=== PATIENT | male | born 1960 | race Caucasian/White ===

== ENCOUNTER 2018-01-15 11:17 | Emergency (ER) | payer BC, OTHER ==
[~2018-01-15] VITALS: Ht 175.3 cm; Wt 108.9 kg
[2018-01-15] MEDS ORDERED: PROSCAR 5MG TABL5 MG PO (11:25)
[2018-01-15] MEDS ORDERED: HYDROCHLOROTH12.5 M1 PO (11:25)
[2018-01-15] MEDS ORDERED: LISINOPRIL20 MG PO (11:25)
[2018-01-15] MEDS ORDERED: NORCO 5-325 TA1 EACH PO (12:48)
[2018-01-15] MEDS ORDERED: VALIUM5 MG PO (12:48)
[2018-01-15] MEDS ORDERED: MOBIC15 MG PO (12:48)
[2018-01-15 13:25] VITALS: BP 155/101
== END 2018-01-15 13:15 | disposition home or self-care (01) ==
LOC: ER 11:17
DX: S29.012A Strain of muscle and tendon of back wall of thorax, initial encounter (principal); I10 Essential (primary) hypertension; Z90.49 Acquired absence of other specified parts of digestive tract; X58.XXXA Exposure to other specified factors, initial encounter; Y93.89 Activity, other specified; Y92.89 Other specified places as the place of occurrence of the external cause; Y99.8 Other external cause status

== ENCOUNTER 2019-01-09 15:29 | Emergency (ER) | payer OTHER ==
[~2019-01-09] VITALS: Ht 172.7 cm; Wt 108.9 kg
[~2019-01-09 15:29] MED LIST: HYDROCHLOROTH12.5 M1 PO; LISINOPRIL20 MG PO; MOBIC15 MG PO; NORCO 5-325 TA1 EACH PO; PROSCAR 5MG TABL5 MG PO; VALIUM5 MG PO
[2019-01-09] MEDS ORDERED: NORCO 5-325 TA1 EACH PO (17:30)
[2019-01-09 17:46] VITALS: BP 142/91
[2019-01-09 18:00] LABS: URINE BILIRUBIN NEGATIVE (Negative); URINE BLOOD NEGATIVE (Negative); URINE CLARITY CLEAR; URINE COLOR YELLOW; URINE GLUCOSE-RANDOM* NEGATIVE (Negative); URINE KETONES NEGATIVE (Negative); URINE LEUKOCYTES-REFLEX NEGATIVE (Negative); URINE NITRITE-REFLEX NEGATIVE (Negative); URINE PROTEIN (DIPSTICK) NEGATIVE (Negative); URINE SPECIFIC GRAVITY 1.025 (1.005-1.035); URINE UROBILINOGEN 0.2 E.U./dl (0.2-1.0)
== END 2019-01-09 17:46 | disposition home or self-care (01) ==
LOC: ER 15:29
PROVIDERS: Physician Assistant
DX: M25.461 Effusion, right knee (principal); M25.561 Pain in right knee; M79.604 Pain in right leg; F17.210 Nicotine dependence, cigarettes, uncomplicated; I10 Essential (primary) hypertension; Z90.49 Acquired absence of other specified parts of digestive tract